=== PATIENT | male | born 1950 | race Caucasian/White ===

== ENCOUNTER → 2018-01-28 08:55 | Outpatient (CLI) | payer MEDICARE, OTHER ==
[~2018-01-28 08:55] MED LIST: BAYER CHEWABLE81 MG PO; GLUCOSAMINE HC500 MG PO; LISINOPRIL10 MG PO; PLAVIX75 MG PO; ZOCOR20 MG PO
[2018-02-01 11:13] VITALS: BMI 30.1
== END | disposition home or self-care (01) ==
LOC: D.HCCARDIO 08:55
DX: I20.9 Angina pectoris, unspecified (principal)

== ENCOUNTER 2018-02-01 10:35 | Outpatient (CLI) | payer MEDICARE, OTHER ==
[~2018-02-01] VITALS: Ht 172.7 cm; Wt 90.0 kg
--- NOTE | ~2018-02-01 | HEMODYNAMI ---
PATIENT:ALDO BURTON MEDICAL RECORD: [id number] : 50 LOCATION:[facility] ADMISSION DATE: 02/01/18 Generatedon:02/01/201814:11 Patient name: ALDO BURTON Patient #: [id number] SSN: : 1950 Date of study: 02/01/2018 Page: Of Hemodynamic Procedure Report Patient Data Patient Demographics Procedure consent was obtained First Name: ALDO Gender: Male Last Name: MICHEAL : 1950 Patient #: [id number] Age: 67 year(s) Race: Unknown Additional ID: [id number] Contact details Address: [address] [place] [address] [facility] State: [place] City: [place] Zip code: [address] Admission Admission Data Admission Date: 02/01/2018 Admission Time: 10:35 Weight (lbs.): 198.42 Weight (kg.): 90 Lab Results Lab Result Date: 02/01/2018 Lab Result Time: 0:00 Biochemistry Name Units Result Min Max BUN mg/dl 16 --(---*)-- 7 18 Creatinine mg/dl 1.2 --(---*)-- 0.6 1.3 CBC Name Units Result Min Max Hemoglobin g/dl 15.1 --(-*--)-- 13.5 17.5 Platelets 10^3/l 247 --(-*--)-- 130 400 Procedure Procedure Types Cath Procedure Diagnostic Procedure [facility] w/Coronaries PCI Procedure Coronary Stent Coronary Stent Initial Coronary Stent Additional Procedure Description Procedure Date Procedure Date: 02/01/2018 Procedure Start Time: 13:30 Procedure End Time: 14:07 Procedure Staff Name Function García Gandara MD Performing Physician Tommy Rayo RT Monitor Nicole Levine RN Nurse Vic Chaudhry RT Scrub Procedure Data Cath Procedure Fluoroscopy Diagnostic fluoroscopy Total fluoroscopy Time: time: 13.6 min 13.6 min Diagnostic fluoroscopy Total fluoroscopy dose: 911 dose: 911 mGy mGy Contrast Material Contrast Material Type Amount (ml) Isovue 300 170 Entry Location Entry Primary Successful Side Size Upsize Upsize Entry Closure Norman ccessful Closure Location (Fr) 1 (Fr) 2 (Fr) Remarks Device Remarks Radial Right 6 Fr Mechanical artery Short Compression Estimated blood loss: 10 ml Diagnostic catheters Device Type Used For End Catheter Placement DIAGNOSTIC Chucky 110cm Procedure 5Fr catheter ([id number]) Procedure Complications No complications Procedure Medications Medication Administration Route Dosage Oxygen etCO2 Nasal cannula 2 l/min Lidocaine 2% added to field 20 Heparin Flush Bag added to field 2 bags (1000units/500ml NS) 0.9% NaCl I.V. 100 ml/hr Radial Cocktail added to field 1 syringe (Verapomil 2mg/Nitro 400mcg/Heparin 1500units) Versed I.V. 1 mg Fentanyl I.V. 50 mcg Versed I.V. 1 mg Fentanyl I.V. 50 mcg Versed I.V. 1 mg Fentanyl I.V. 50 mcg Versed I.V. 1 mg Fentanyl I.V. 50 mcg Heparin Bolus I.V. 9000 units Versed I.V. 1 mg Nitroglycerin IC/IA I.C. 100 mcg Plavix P.O. 600 mg Hemodynamics Rest HGB: 15.1 (g/dl) Heart Rate: 65 (bpm) Pressure Samples Time Site Value (mmHg) Purpose Heart Use Rate(bpm) 13:32 LV 106/35,7 Snapshot 127 13:32 AO 145/86(115) Pullback 103 13:32 LV 143/15,27 Pullback 103 13:32 AO 122/70(79) Snapshot 90 13:35 AO 114/75(92) Snapshot 92 Gradients Valve Time Site 1 Site 2 Mean SEP/DFP Peak To Heart Use (mmHg) (sec/min) Peak Rate (mmHg) (bpm) Aortic 13:32 LV AO 0 103 143/15,27 145/86(115) Calculations Valve P-P Mean Valve Index Valve Source Name Gradient Area Flow (cm2) Aortic 0 0 Snapshots Pre Cath Intra NCS Post Cath Vital Signs Time Heart Resp SPO2 etCO2 NIBP (mmHg) Rhythm Pain Sedation Rate (ipm) (%) (mmHg) Status Level (bpm) 13:17:10 69 17 92 15 146/98(129) NSR 0 (11) 10(A) , No pain 13:21:30 67 14 93 17.3 142/87(127) NSR 0 (11) 10(A) , No pain 13:25:48 72 15 95 9.8 139/92(114) NSR 0 (11) 10(A) , No pain 13:31:01 83 13 94 18 126/86(106) NSR 0 (11) 9(A) , No pain 13:36:13 94 11 95 12 119/88(103) NSR 0 (11) 9(A) , No pain 13:40:25 89 14 92 24.1 114/87(107) NSR 0 (11) 9(A) , No pain 13:45:26 90 14 94 27.8 139/86(101) NSR 0 (11) 9(A) , No pain 13:49:42 80 16 94 28.6 107/93(103) NSR 0 (11) 9(A) , No pain 13:53:52 78 13 93 17.3 126/78(104) NSR 0 (11) 9(A) , No pain 13:58:14 77 14 92 18 111/70(91) NSR 0 (11) 9(A) , No pain 14:02:22 81 15 93 17.3 111/79(107) NSR 0 (11) 9(A) , No pain 14:06:32 89 14 94 32.4 126/85(122) NSR 0 (11) 10(A) , No pain Medications Time Medication Route Dose Verified Delivered Reason Not es Effectiveness by by 13:19:32 Oxygen etCO2 2 l/min García Buffie used for Nasal Eric Levine RN procedure cannula 13:19:39 Lidocaine 2% added 20ml García García for local to vial Eric Gandara MD anesthetic field 13:19:46 Heparin Flush added 2 bags García García used for Bag to Eric Gandara MD procedure (1000units/500ml field NS) 13:19:57 0.9% NaCl I.V. 100 García Buffie Per physician ml/hr Eric Levine RN 13:20:16 Radial Cocktail added 1 García García for (Verapomil to syringe Eric Gandara MD vasodilation 2mg/Nitro field 400mcg/Heparin 1500units) 13:21:04 Fentanyl I.V. 50 mcg García Buffie for sedation Eric Levine RN 13:21:59 Versed I.V. 1 mg García Buffie for sedation Eric Levine RN 13:25:26 Versed I.V. 1 mg García Buffie for sedation Eric Levine RN 13:25:32 Fentanyl I.V. 50 mcg García Buffie for sedation Eric Levine RN 13:38:02 Versed I.V. 1 mg García Buffie for sedation Eric Levine RN 13:38:07 Fentanyl I.V. 50 mcg García Buffie for sedation Eric Levine RN 13:45:28 Versed I.V. 1 mg García Buffie for sedation Eric Levine RN 13:45:32 Fentanyl I.V. 50 mcg García Buffie for sedation Eric Levine RN 13:46:56 Heparin Bolus I.V. 9000 García Buffie for mauro ified units Eric Levine RN anticoagulation with dr gandara 13:52:37 Versed I.V. 1 mg García Buffie for sedation Eric Levine RN 14:00:56 Nitroglycerin I.C. 100 mcg García García for IC/IA Eric camacho 14:07:36 Plavix P.O. 600 mg García Buffie for Eric Levine RN antiplatelet therapy Procedure Log Time Note 12:40:18 Nicole Levine RN sent for patient. Start room use. 12:58:19 Time tracking: Regular hours (M-F 7:00 - 5:00) 12:58:24 Plan of Care:Hemodynamics will remain stable., Cardiac rhythm will remain stable., Comfort level will be maintained., Respiratory function will remain adequate., Patient/ family verbilizes understanding of procedure., Procedure tolerated without complication., Recovers from procedure without complications.. 13:01:33 Patient received from Pre/Post Procedure Room to CCL 3 Alert and oriented. Tansferred to table in Supine position. 13:01:35 Warm blankets applied, and tanja hugger turned on for patient comfort. 13:01:35 Correct patient and procedure confirmed by team. 13:01:36 Signed procedure consent form obtained from patient. 13:01:37 ECG and BP/O2 sat monitors applied to patient. 13:15:55 Vital chart was started 13:15:57 Baseline sample Acquired. 13:16:01 Rhythm: sinus rhythm 13:16:02 Full Disclosure recording started 13:16:16 H&P Date Dictated: 01/11/2018 Within 30 days and on chart., H&P Addendum completed by physician on day of procedure. (MUST COMPLETE FOR ALL OUTPATIENTS). 13:16:16 Pre-procedure instructions explained to patient. 13:16:17 Pre-op teaching completed and patient verbalized understanding. 13:16:20 Family in patients room. 13:18:19 Patient NPO since Midnight. 13:18:23 Is the patient allergic to Iodine/contrast media? No. 13:18:28 Is patient on blood thinner?No 13:18:31 Patient diabetic? No. 13:18:36 Previous problem with sedation/anesthesia? No ? 13:18:48 Snore? Yes 13:18:49 Sleep apnea? No 13:18:50 Deviated septum? No 13:18:51 Opens mouth fully? Yes 13:18:51 Sticks out tongue? Yes 13:18:53 Airway obstruction? No ? 13:18:55 Dentures? No ? 13:18:58 Pre procedure: right dorsailis pedis pulse 1+ Palpable, but thready & weak; easily obliterated 13:19:00 Modified Rikki's test Ulnar < 7 seconds 13:19:03 Patient pain scale 0/10 ?. 13:19:08 IV patent on arrival in left hand with 0.9% NaCl at O. 13:19:09 Lab results completed and on chart. 13:19:12 Right Radial & Right Groin area was prepped with chlora-prep and draped in sterile fashion 13:19:13 Alarms reviewed by R. N. 13:19:14 Sharps counted by scrub and verified by R.N. 13:19:17 Use device set Radial Dx or PCI 13:19:21 ACIST Manifold (40295) opened to sterile field. 13:19:22 ACIST Hand Control (12145) opened to sterile field. 13:19:23 ACIST Syringe (56294) opened to sterile field. 13:19:23 Medline Cath Pack ([id number]) opened to sterile field. 13:19:24 Bag Decanter (2002S) opened to sterile field. 13:19:24 DIAGNOSTIC WIRE .035 260cm J wire (919596) opened to sterile field. 13:19:27 SHEATH 6Fr Prelude Radial ([id number]) opened to sterile field. 13:19:32 Oxygen 2 l/min etCO2 Nasal cannula was administered by Nicole Levine RN; used for procedure; 13:19:39 Lidocaine 2% 20ml vial added to field was administered by García Gandara MD; for local anesthetic; 13:19:46 Heparin Flush Bag (1000units/500ml NS) 2 bags added to field was administered by García Gandara MD; used for procedure; 13:19:57 0.9% NaCl 100 ml/hr I.V. was administered by Nicole Levine RN; Per physician; 13:20:16 Radial Cocktail (Verapomil 2mg/Nitro 400mcg/Heparin 1500units) 1 syringe added to field was administered by García Gandara MD; for vasodilation; 13:20:33 --------ALL STOP TIME OUT------ 13:20:34 Final Timeout: patient, procedure, and site verified with staff and physician. All members of the team are in agreement. 13:20:36 Right Radial & Right Groin site verified by team. 13:20:39 Physical assessment completed. ASA score P 2 - A patient with mild systemic disease as per García Gandara MD. 13:20:41 Sedation plan: IV Moderate Sedation Medication:Versed, Fentanyl 13:21:04 Fentanyl 50 mcg I.V. was administered by Nicole Levine RN; for sedation; 13::59 Versed 1 mg I.V. was administered by Nicole Levine RN; for sedation; 13::27 Zero performed for pressure channel P1 13:25:26 Versed 1 mg I.V. was administered by Nicole Levine RN; for sedation; 13:25:32 Fentanyl 50 mcg I.V. was administered by Nicole Levine RN; for sedation; 13::49 Patient Weight : 198.42 lbs 13::46 Lab Result : Hemoglobin 15.1 g/dl 13::46 Lab Result : Creatinine 1.2 mg/dl 13::46 Lab Result : BUN 16 mg/dl 13::46 Lab Result : Platelets 247 10^3/l 13:30:35 Procedure started. 13:30:41 Local anesthetic to right radial artery with Lidocaine 2% by García Gandara MD.INITIAL ACCESS ONLY 13:31:00 A 6 Fr Short sheath was inserted into the Right Radial artery 13:31:17 A DIAGNOSTIC Chucky 110cm 5Fr catheter ([id number]) was advanced over the wire and used for Procedure. 13:32:18 LV angiography performed. 13:32:19 LV gram done using GIBSON 13:32:23 EF : 60 % 13:32:34 LV hemodynamics recorded. 13:32:36 Injector settings: Ml/sec: 5, Volume: 15, 13:33:20 RCA angiography performed. 13:34:12 LCA angiography performed. 13:37:41 Catheter exchanged over wire. 13:37:44 Use device set ERIC PCI 13:37:46 GUIDE 6FR AR 1.0 catheter ([id number]) opened to sterile field. 13:37:51 BMW 300cm [place] 2 J wire ([id number]) opened to sterile field. 13:37:52 INFLATOR Merit BasixCompak (MR5453) opened to sterile field. 13:37:53 TUBING High Pressure Extension Tubing (Eric) (CX4060F) opened to sterile field. 13:38:02 Versed 1 mg I.V. was administered by Nicole Levine RN; for sedation; 13:38:07 Fentanyl 50 mcg I.V. was administered by Nicole Levine RN; for sedation; 13:39:56 6 Fr AR 1 guide catheter was inserted over the wire 13:42:15 Guide Catheter removed. unable to cannulate vessel. 13:43:30 GUIDE 6FR HS I catheter (LA6HSI) opened to sterile field. 13:44:45 6 Fr HS 1 guide catheter was inserted over the wire 13:45:28 Versed 1 mg I.V. was administered by Nicole Levine RN; for sedation; 13:45:32 Fentanyl 50 mcg I.V. was administered by Nicole Levine RN; for sedation; 13:46:15 BMW wire advanced. 13:46:56 Heparin Bolus 9000 units I.V. was administered by Nicole Levine RN; for anticoagulation; verified with dr gandara 13:50:49 Wire advanced across lesion. 13:52:37 Versed 1 mg I.V. was administered by Nicole Levine RN; for sedation; 13:53:41 Place stent Inflation Number: 1 A INTEGRITY OTW 2.5 X 12 stent ([id number]) was prepped and advanced across the R PDA. The stent was deployed at 14 SONALI for 0:10 (min:sec). 13:58:01 Stent catheter was removed intact over wire. 14:00:19 Place stent Inflation Number: 1 A INTEGRITY OTW 3.0 X 22 stent ([id number]) was prepped and advanced across the Dist RCA. The stent was deployed at 10 SONALI for 0:10 (min:sec). 14:00:49 Stent catheter was removed intact over wire. 14:00:56 Nitroglycerin IC/IA 100 mcg I.C. was administered by García Gandara MD; for vasodilation; 14:04:32 Stent catheter was removed intact over wire. 14:04:33 Wire removed. 14:04:34 Guide catheter removed. 14:04:42 TR BAND Standard ([id number]) opened to sterile field. 14:04:57 Sheath removed intact; hemostasis achieved with Mechanical Compression to the Right Radial artery. 14:04:59 Procedure ended.(Physican Out) 14:05:49 Fluoroscopy time 13.60 minutes. 14:05:53 Fluoroscopy dose: 911 mGy 14:05:53 Flurop Dose total: 911 14:05:57 Contrast amount:Isovue 300 170ml. 14:05:59 Sharps counted by scrub and verified by R.N. 14:06:00 Insertion/operative site no bleeding no hematoma. 14:06:08 TR band inflated with 10cc of air. 14:06:11 Post Procedure Pulses reassessed and unchanged 14:06:17 Post-procedure physical assessment completed. ASA score P 2 - A patient with mild systemic disease as per García Gandara MD. 14:06:19 Post procedure rhythm: unchanged. 14:06:22 Estimated blood loss: 10 ml 14:06:25 Post procedure instruction explained to patient.Patient verbalizes understanding. 14:06:25 Patient needs reinforcement of post procedure teaching. 14:06:39 Procedure type changed to Cath procedure, Diagnostic procedure, LHC, LHC w/Coronaries, PCI procedure, Coronary Stent, Coronary Stent Initial, Coronary Stent Additional 14:06:41 Procedure and supply charges have been captured, reviewed, submitted and are correct. 14:06:43 Procedure Complication : No complications 14:07:08 Vital chart was stopped 14:07:08 See physician's report for complete and final results. 14:07:10 Report given to Pre/Post Procedure Room. 14:07:12 Patient transfered to Pre/Post Procedure Room with Stretcher. 14:07:14 Procedure ended. 14:07:14 Full Disclosure recording stopped 14:07:36 Plavix 600 mg P.O. was administered by Nicole Levine RN; for antiplatelet therapy; 14:08:12 End room use (Document Last) Intervention Summary Intervention Notes Time ActionType Lesion and Equipment Action# Pressure Duration Attributes Used 13:53:41 Place stent R PDA INTEGRITY 1 14 00:10 OTW 2.5 X 12 stent ([id number]) 14:00:19 Place stent Dist RCA INTEGRITY 1 10 00:10 OTW 3.0 X 22 stent ([id number]) Device Usage Item Name Manufacture Quantity Catalog Number Hospital Part Current M inimal Lot# / Charge Number Stock Stock Serial# Code ACIST Manifold Acist 1 23351 237731 217738 177601 5 (21102) [employer] ACIST Hand Acist 1 58468 166054 586136 439864 5 Control (91023) [employer] ACIST Syringe Acist 1 70329 575744 674889 995418 2 0 (07039) [employer] Medline Cath Medline 1 [id number] 111564 92977 480002 5 Pack ([id number]) Bag Decanter Microtek 1 2002S 879097 60388 640776 5 (2001S) Medical Inc. DIAGNOSTIC WIRE St Shamir 1 110478 212188 970228 666118 3 0 .035 260cm J wire (847627) SHEATH 6Fr Merit 1 [id number] 002114 821799 933640 5 Prelude Radial Medical ([id number]) DIAGNOSTIC Terumo 1 82-0633 584155 496933 829417 5 Chucky 110cm 5Fr catheter (858251) GUIDE 6FR AR Medtronic 1 [id number] 850423 33023 249421 1 1.0 catheter ([id number]) BMW 300cm Norton 1 [id number] 820533 171261 014300 5 [place] 2 J Vascular wire (1717560M) INFLATOR Merit Merit 1 NT9722 234938 896723 867438 1 5 BasixCompak Medical (MB5626) TUBING High Merit 1 [id number] 550759 05805 266582 1 0 Pressure Medical Extension Tubing (Gandara) ([id number]) GUIDE 6FR HS I Medtronic 1 LA6HSI 065459 59122 212470 1 catheter (LA6HSI) INTEGRITY OTW Medtronic 1 [id number] 299382 777546 3 [id number] 2.5 X 12 stent ([id number]) INTEGRITY OTW Medtronic 1 [id number] 774989 396905 3 [id number] 3.0 X 22 stent ([id number]) TR BAND Terumo 1 [id number] 638316 581413 985694 4 0 Standard ([id number]) Signature Audit [place] Stage Time Signature Unsigned Intra-Procedure 02/01/2018 Tommy Rayo 2:10:59 PM RT(R) Signatures Monitor : Tommy Rayo RT Signature : Date : Time : [place] [address] [place] [address]
[2018-02-01] MEDS ORDERED: LISINOPRIL10 MG PO (11:06)
[2018-02-01] MEDS ORDERED: ZOCOR20 MG PO (11:06)
[2018-02-01] MEDS ORDERED: BAYER CHEWABLE81 MG PO (11:07)
[2018-02-01] MEDS ORDERED: GLUCOSAMINE HC500 MG PO (11:07)
[2018-02-01 11:13] VITALS: BP 158/80; Ht 172.7 cm; Wt 90.0 kg
[2018-02-01 11:26] LABS: BASOPHILS 0.2 % (0-2); EOSINOPHILS 2.6 % (0-7); HEMATOCRIT 44.6 % (42.0-54.0); HEMOGLOBIN 15.1 g/dL (13.5-17.5); IMMATURE GRANULOCYTES 0.1 % (0-5); LYMPHOCYTES 39.8 % (15-50); MCH 31.3 pg (26.0-34.0); MCHC 33.9 g/dL (31.0-37.0); MCV 92.5 fL (80.0-100.0); MEAN PLATELET VOLUME 11.9 fL (7.4-10.4); MONOCYTES 12.3 % (2-11); PLATELET COUNT 247 10x3/uL (130-400); RBC 4.82 10x6/uL (4.20-6.10)
[2018-02-01 11:37] LABS: ANION GAP 13.7 mmol/L (8-16); CALCIUM 8.8 mg/dL (8.5-10.1); CARBON DIOXIDE 25.4 mmol/L (21.0-32.0); CREATININE - SERUM 1.2 mg/dL (0.6-1.3); POTASSIUM - SERUM 4.1 mmol/L (3.5-5.1)
[2018-02-01] MEDS ORDERED: PLAVIX75 MG PO (14:20)
== END 2018-02-01 18:30 | disposition home or self-care (01) ==
LOC: D.CATH 10:35
PROVIDERS: Internal Medicine Cardiovascular Disease
DX: I20.9 Angina pectoris, unspecified (principal)

== ENCOUNTER → 2018-05-11 08:52 | Outpatient (CLI) | payer MEDICARE, OTHER ==
[2018-02-01 11:13] VITALS: BMI 30.1
== END | disposition home or self-care (01) ==
LOC: D.US 08:30
PROVIDERS: ATTEND Family Medicine
DX: R94.5 Abnormal results of liver function studies (principal)

== ENCOUNTER 2018-06-10 05:53 | Outpatient (CLI) | payer MEDICARE, OTHER ==
[~2018-06-10] VITALS: Ht 172.7 cm; Wt 91.4 kg
--- NOTE | ~2018-06-10 | HEMODYNAMI ---
PATIENT:ALDO BURTON MEDICAL RECORD: [id number] : 50 LOCATION:D.CAT ADMISSION DATE: 06/10/18 Generatedon:06/10/20188:54 Patient name: ALDO BURTON Patient #: [id number] SSN: : 1950 Date of study: 06/10/2018 Page: Of Hemodynamic Procedure Report Patient Data Patient Demographics Procedure consent was obtained First Name: ALDO Gender: Male Last Name: MICHEAL : 1950 [facility] Initial: SANTINO Age: 67 year(s) Patient #: [id number] Race: Unknown Additional ID: [id number] Contact details Address: [address] [place] [address] [facility] State: [place] City: [place] Zip code: [address] Past Medical History Allergies: No known allergies Admission Admission Data Admission Date: 06/10/2018 Admission Time: 5:53 Lab Results Lab Result Date: 06/10/2018 Lab Result Time: 0:00 Biochemistry Name Units Result Min Max BUN mg/dl 23 --(----)-* 7 18 Creatinine mg/dl 1.2 --(---*)-- 0.6 1.3 CBC Name Units Result Min Max Hematocrit % 43.9 --(*---)-- 42 54 Hemoglobin g/dl 14.8 --(-*--)-- 13.5 17.5 Procedure Procedure Types Cath Procedure Diagnostic Procedure C [facility] w/Coronaries FFR/IVUS Intra-Coronary IVUS Initial Sedation Charges Moderate Sedation up to 30 minutes PCI Procedure Coronary Stent Coronary Stent Initial Procedure Description Procedure Date Procedure Date: 06/10/2018 Procedure Start Time: 8:25 Procedure End Time: 8:52 Procedure Staff Name Function García Reyes MD Performing Physician Phyllis Geller RT Scrub Vanessa Larson RT Monitor Nicole Levine RN Nurse Procedure Data Cath Procedure Fluoroscopy Diagnostic fluoroscopy Total fluoroscopy Time: 5.3 time: 5.3 min min Diagnostic fluoroscopy Total fluoroscopy dose: dose: 1085 mGy 1085 mGy Contrast Material Contrast Material Type Amount (ml) Isovue 300 94 Entry Location Entry Primary Successful Side Size Upsize Upsize Entry Closure Norman ccessful Closure Location (Fr) 1 (Fr) 2 (Fr) Remarks Device Remarks Radial Right 6 Fr Mechanical artery Short Compression Estimated blood loss: 10 ml Diagnostic catheters Device Type Used For End Catheter Placement DIAGNOSTIC Chucky 110cm Procedure 5Fr catheter ([id number]) Procedure Complications No complications Procedure Medications Medication Administration Route Dosage Versed I.V. 1 mg Fentanyl I.V. 50 mcg Radial Cocktail added to field 1 syringe (Verapomil 2mg/Nitro 400mcg/Heparin 1500units) Versed I.V. 1 mg Fentanyl I.V. 50 mcg Oxygen etCO2 Nasal cannula 2 l/min Lidocaine 2% added to field 20 Heparin Flush Bag added to field 2 bags (1000units/500ml NS) 0.9% NaCl I.V. 100 ml/hr Versed I.V. 1 mg Fentanyl I.V. 50 mcg Heparin Bolus I.V. 9000 units Versed I.V. 1 mg Fentanyl I.V. 50 mcg Plavix P.O. 600 mg Hemodynamics Rest HGB: 14.8 (g/dl) Heart Rate: 73 (bpm) Pressure Samples Time Site Value (mmHg) Purpose Heart Use Rate(bpm) 8:27 LV 176/9,35 Snapshot 71 Gradients Valve Time Site Site Mean SEP/DFP Peak To Heart Use 1 2 (mmHg) (sec/min) Peak Rate (mmHg) (bpm) Aortic 8:27 LV AO 92 Snapshots Pre Cath Intra NCS Post Cath Vital Signs Time Heart Resp SPO2 etCO2 NIBP (mmHg) Rhythm Pain Sedation Rate (ipm) (%) (mmHg) Status Level (bpm) 8:07:56 70 33 96 32.5 163/93(151) NSR 0 (11) 10(A) , No pain 8:12:16 54 13 96 0 151/92(109) NSR 0 (11) 10(A) , No pain 8:16:34 61 13 94 35.5 138/81(114) NSR 0 (11) 10(A) , No pain 8:20:46 60 18 94 16.6 131/83(120) NSR 0 (11) 9(A) , No pain 8:24:52 68 17 96 22.6 139/97(112) NSR 0 (11) 9(A) , No pain 8:30:52 84 16 94 36.2 139/85(0) NSR 0 (11) 9(A) , No pain 8:34:37 80 15 97 30.2 147/80(103) NSR 0 (11) 9(A) , No pain 8:38:47 86 16 94 31.7 137/87(112) NSR 0 (11) 9(A) , No pain 8:42:57 77 14 95 30.2 126/88(121) NSR 0 (11) 9(A) , No pain 8:47:03 71 14 93 8.3 131/92(124) NSR 0 (11) 10(A) , No pain 8:51:13 90 16 95 36.2 135/87(117) NSR 0 (11) 10(A) , No pain Medications Time Medication Route Dose Verified Delivered Reason Note s Effectiveness by by 8:09:55 0.9% NaCl I.V. 100 García Buffie Per physician ml/hr Eric Levine RN 8:10:34 Oxygen etCO2 2 l/min García Buffie used for Nasal Eric Levine RN procedure cannula 8:11:44 Lidocaine 2% added 20ml García García for local to vial Eric Reyes MD anesthetic field 8:11:50 Heparin Flush added 2 bags García García used for Bag to Eric Reyes MD procedure (1000units/500ml field NS) 8:17:05 Versed I.V. 1 mg García Buffie for sedation pt s tates Eric Levine RN had reaction of chills to eye procedure using versed, however states they left "visc elastic"in eye. last procedure had no problems with versed. 8:18:30 Fentanyl I.V. 50 mcg García Buffie for sedation Eric Levine RN 8:19:37 Radial Cocktail added 1 García García for (Verapomil to syringe Eric Reyes MD vasodilation 2mg/Nitro field 400mcg/Heparin 1500units) 8:23:24 Versed I.V. 1 mg García García for sedation Eric Reyes MD 8:23:28 Fentanyl I.V. 50 mcg García García for sedation Eric Reyes MD 8:26:41 Versed I.V. 1 mg García Buffie for sedation Eric Levine RN 8:26:47 Fentanyl I.V. 50 mcg García Buffie for sedation Eric Levine RN 8:36:46 Heparin Bolus I.V. 9000 García Buffie for veri fied units Eric Levine RN anticoagulation with dr reyes 8:42:51 Versed I.V. 1 mg García Buffie for sedation Eric Levine RN 8:42:55 Fentanyl I.V. 50 mcg García Buffie for sedation Eric Levine RN 8:50:33 Plavix P.O. 600 mg García Buffie for Eric Levine RN antiplatelet therapy Procedure Log Time Note 7:55:41 Phyllis Counts RT(R) sent for patient. Start room use. 7:55:42 Time tracking: Regular hours (M-F 7:00 - 5:00) 7:55:45 Plan of Care:Hemodynamics will remain stable., Cardiac rhythm will remain stable., Comfort level will be maintained., Respiratory function will remain adequate., Patient/ family verbilizes understanding of procedure., Procedure tolerated without complication., Recovers from procedure without complications.. 7:57:17 Signed procedure consent form obtained from patient. 7:57:30 H&P Date Dictated: 06/02/2018 Within 30 days and on chart., H&P Addendum completed by physician on day of procedure. (MUST COMPLETE FOR ALL OUTPATIENTS). 8:00:16 Lab Result : BUN 23 mg/dl 8:00:16 Lab Result : Creatinine 1.2 mg/dl 8:00:16 Lab Result : Hemoglobin 14.8 g/dl 8:00:16 Lab Result : Hematocrit 43.9 % 8:00:31 Patient received from Pre/Post Procedure Room to [facility] 2 Alert and oriented. Tansferred to table in Supine position. 8:00:33 Warm blankets applied, and tanja hugger turned on for patient comfort. 8:00:33 Correct patient and procedure confirmed by team. 8:00:34 ECG and BP/O2 sat monitors applied to patient. 8:06:45 Vital chart was started 8:09:46 Baseline sample Acquired. 8:09:49 Rhythm: sinus rhythm 8:09:50 Full Disclosure recording started 8:09:51 Pre-procedure instructions explained to patient. 8:09:51 Pre-op teaching completed and patient verbalized understanding. 8:09:53 Family in patients room. 8:09:54 Patient NPO since Midnight. 8:09:55 0.9% NaCl 100 ml/hr I.V. was administered by Nicole Levine RN; Per physician; 8:10:04 Patient allergic to No known allergies 8:10:07 Is patient on blood thinner?No 8:10:09 Patient diabetic? No. 8:10:11 Previous problem with sedation/anesthesia? No ? 8:10:13 Snore? No 8:10:14 Sleep apnea? No 8:10:15 Deviated septum? No 8:10:16 Opens mouth fully? Yes 8:10:16 Sticks out tongue? Yes 8:10:18 Airway obstruction? No ? 8:10:21 Dentures? No ? 8:10:24 Modified Rikki's test Ulnar < 7 seconds 8:10:26 Patient pain scale 0/10 ?. 8:10:31 IV patent on arrival in left hand with 0.9% NaCl at [facility]. 8:10:33 Lab results completed and on chart. 8:10:34 Oxygen 2 l/min etCO2 Nasal cannula was administered by Nicole Levine RN; used for procedure; 8:11:23 Right Radial & Right Groin area was prepped with chlora-prep and draped in sterile fashion 8:11:24 Alarms reviewed by R. N. 8:11:25 Sharps counted by scrub and verified by R.N. 8:11:42 Use device set Radial Dx or PCI 8:11:44 Lidocaine 2% 20ml vial added to field was administered by García Reyes MD; for local anesthetic; 8:11:44 ACIST Syringe (16559) opened to sterile field. 8:11:44 Bag Decanter () opened to sterile field. 8:11:45 ACIST Hand Control (99695) opened to sterile field. 8:11:46 ACIST Manifold (57465) opened to sterile field. 8:11:46 Tegaderm 4 x 4 (1626W) opened to sterile field. 8:11:50 Heparin Flush Bag (1000units/500ml NS) 2 bags added to field was administered by García Reyes MD; used for procedure; 8:11:50 Medline Cath Pack ([id number]) opened to sterile field. 8:11:51 DIAGNOSTIC WIRE .035 260cm J wire (583569) opened to sterile field. 8:11:51 MBrace Wrist Support ([id number]) opened to sterile field. 8:11:52 SHEATH 6FR Slender (26-7942) opened to sterile field. 8:14:38 NEEDLE Cook 21G 4cm Radial ([id number]) opened to sterile field. 8:14:41 --------ALL STOP TIME OUT------ 8:14:41 Final Timeout: patient, procedure, and site verified with staff and physician. All members of the team are in agreement. 8:14:43 Right Radial & Right Groin site verified by team. 8:14:45 Maximum allowable Isovue 300 dose 300ml. Physician notified. (300ml for normal creatinines. For patients with creatinine of 1.7 or higher multiply weight(kg) x 5 divided by creatinine.) 8:14:48 Fire Safety Assessment: A--An alcohol-based skin anteseptic being used preoperatively., C--Open oxygen or nitrous oxide is being used., D--An ESU, laser, or fiber-optic light is being used. 8:14:51 Physical assessment completed. ASA score P 2 - A patient with mild systemic disease as per García Reyes MD. 8:14:54 Sedation plan: IV Moderate Sedation Medication:Versed, Fentanyl 8:17:05 Versed 1 mg I.V. was administered by Nicole Levine RN; for sedation; pt states had reaction of chills to eye procedure using versed, however states they left "visc elastic"in eye. last procedure had no problems with versed. 8:18:30 Fentanyl 50 mcg I.V. was administered by Nicole Levine RN; for sedation; 8:19:37 Radial Cocktail (Verapomil 2mg/Nitro 400mcg/Heparin 1500units) 1 syringe added to field was administered by García Reyes MD; for vasodilation; 8:21:27 Zero performed for pressure channel P1 8:23:24 Versed 1 mg I.V. was administered by García Reyes MD; for sedation; 8:23:28 Fentanyl 50 mcg I.V. was administered by García Reyes MD; for sedation; 8:24:04 Procedure started. 8:25:02 Local anesthetic to right radial artery with Lidocaine 2% by García Reyes MD.INITIAL ACCESS ONLY 8:25:16 A 6 Fr Short sheath was inserted into the Right Radial artery 8:25:23 A DIAGNOSTIC Chucky 110cm 5Fr catheter ([id number]) was advanced over the wire and used for Procedure. 8:26:37 LV gram done using GIBSON 8:26:41 Versed 1 mg I.V. was administered by Nicole Levine RN; for sedation; 8::42 Injector settings: Ml/sec: 7, Volume: 15, 8:26:47 Fentanyl 50 mcg I.V. was administered by Nicole Levine RN; for sedation; 8:27:11 LV hemodynamics recorded. 8:27:23 EF : 55 % 8:29:52 LCA angiography performed. 8:29:53 RCA angiography performed. 8:33:31 Catheter exchanged over wire. 8:34:00 INFLATOR Merit BasixCompak (FW6555) opened to sterile field. 8:34:01 BMW 300cm Straight [place] 2 wire ([id number]) opened to sterile field. 8:34:01 TUBING High Pressure Extension Tubing (Eric) ([id number]) opened to sterile field. 8:34:25 GUIDE 6FR AR 1.0 catheter ([id number]) opened to sterile field. 8:34:57 6 Fr AR 1 guide catheter was inserted over the wire 8:36:46 Heparin Bolus 9000 units I.V. was administered by Nicole Levine RN; for anticoagulation; verified with dr reyes 8:36:54 Martin Rexford Eagleye IVUS Catheter (23397W) opened to sterile field. 8:37:42 BMW 300 wire advanced. 8:37:54 Wire advanced across lesion. 8:42:51 Versed 1 mg I.V. was administered by Nicole Levine RN; for sedation; 8:42:55 Fentanyl 50 mcg I.V. was administered by Nicole Levine RN; for sedation; 8:44:59 IVUS catheter advanced over wire. 8:45:01 IVUS pass to RCA lesion performed. 8:45:02 IVUS catheter removed over wire. 8:48:45 Place stent Inflation Number: 1 A INTEGRITY RX 4.0 x 15 stent ([id number]) was prepped and advanced across the Prox RCA. The stent was deployed at 14 SONALI for 0:10 (min:sec). 8:49:02 Stent catheter was removed intact over wire. 8:49:40 Wire removed. 8:49:40 Guide catheter removed. 8:49:57 TR BAND Standard ([id number]) opened to sterile field. 8:50:31 Procedure ended.(Physican Out) 8:50:33 Plavix 600 mg P.O. was administered by Nicole Levine RN; for antiplatelet therapy; 8:50:56 Sheath removed intact; hemostasis achieved with Mechanical Compression to the Right Radial artery. 8:51:01 Fluoroscopy time 05.30 minutes. 8:51:09 Flurop Dose total: 1085 8:51:09 Fluoroscopy dose: 1085 mGy 8:51:14 Contrast amount:Isovue 300 94ml. 8:51:15 Sharps counted by scrub and verified by R.N. 8:51:17 TR band inflated with 13cc of air. 8:51:21 Post-procedure physical assessment completed. ASA score P 2 - A patient with mild systemic disease as per García Reyes MD. 8:51:28 Post procedure rhythm: sinus rhythm 8:51:30 Estimated blood loss: 10 ml 8:51:31 Post procedure instruction explained to patient.Patient verbalizes understanding. 8:51:32 Patient needs reinforcement of post procedure teaching. 8:51:47 Procedure type changed to Cath procedure, Diagnostic procedure, LHC, LHC w/Coronaries, FFR/IVUS, Intra-Coronary IVUS Initial, Sedation Charges, Moderate Sedation up to 30 minutes, PCI procedure, Coronary Stent, Coronary Stent Initial 8:52:16 Procedure and supply charges have been captured, reviewed, submitted and are correct. 8:52:18 Procedure Complication : No complications 8:52:20 Vital chart was stopped 8:52:20 See physician's report for complete and final results. 8:52:22 Report given to Pre/Post Procedure Room. 8:52:27 Patient transfered to Pre/Post Procedure Room with Bed. 8:52:29 Procedure ended. 8:52:29 Full Disclosure recording stopped 8:52:34 End room use (Document Last) Intervention Summary Intervention Notes Time ActionType Lesion and Equipment Action# Pressure Duration Attributes Used 8:48:45 Place stent Prox RCA INTEGRITY RX 1 14 00:10 4.0 x 15 stent ([id number]) Device Usage Item Name Manufacture Quantity Catalog Hospital Part Current Minima l Lot# / Number Charge Number Stock Stock Serial# Code ACIST Acist 1 33581 870020 366837 888668 20 Syringe Medical (33814) Systems Inc Bag Decanter Microtek 1 2001S 083271 33393 356819 5 (2001S) Medical Inc. ACIST Hand Acist 1 82530 784314 565105 382810 5 Control Medical (09595) Systems Inc ACIST Acist 1 99988 166274 801662 616375 5 Manifold Medical (81898) Systems Inc Tegaderm 4 x 3M 1 1626W 432754 406508 001979 5 4 (1626W) Medline Cath Medline 1 [id number] 921973 12161 341892 5 Pack ([id number]) DIAGNOSTIC St Shamir 1 273516 674460 436584 828930 30 WIRE .035 260cm J wire (837332) MBrace Wrist Advanced 1 140-0250-00 068985 43178 625832 5 Support Vascular (172382317) Dynamics SHEATH 6FR Terumo 1 [id number] 602442 589501 277929 5 Slender (80-1060) NEEDLE Cook [place] [employer] 1 G83512 008716 139246 308789 5 21G 4cm Radial (N79092) DIAGNOSTIC Terumo 1 405023 412437 109894 328640 5 Chucky 110cm 5Fr catheter (144314) INFLATOR Merit 1 NN6876 370647 497665 608441 15 Merit Medical BasixCompak (NG8519) BMW 300cm Norton 1 [id number] 853069 958707 144075 5 Straight Vascular Kol[place] 2 wire (7508312) TUBING High Merit 1 UV3650Q 547968 24564 588374 10 Pressure Medical Extension Tubing (Reyes) ([id number]) GUIDE 6FR AR Medtronic 1 [id number] 424431 55905 553697 1 1.0 catheter ([id number]) Martin Martin 1 54907J 807486 170518 839212 8 Rexford Eagleye IVUS Catheter (14089Z) INTEGRITY RX Medtronic 1 [id number] 864687 959324 206244 5 [id number] 4.0 x 15 stent ([id number]) TR BAND Terumo 1 [id number] 635235 325995 013322 40 Standard ([id number]) Signature Audit [place] Stage Time Signature Unsigned Intra-Procedure 06/10/2018 Vanessa Larson 8:54:38 AM RT(R) Signatures Monitor : Vanessa Larson Signature : RT Date : Time : [place] [address] [place] [address]
[2018-06-10 06:32] VITALS: BP 141/85; Ht 172.7 cm; Wt 91.4 kg
[2018-06-10 06:37] LABS: BASOPHILS 0.3 % (0-2); HEMATOCRIT 43.9 % (42.0-54.0); HEMOGLOBIN 14.8 g/dL (13.5-17.5); IMMATURE GRANULOCYTES 0.3 % (0-5); LYMPHOCYTES 41.7 % (15-50); MCHC 33.7 g/dL (31.0-37.0); MCV 91.8 fL (80.0-100.0); MEAN PLATELET VOLUME 12.2 fL (7.4-10.4); NEUTROPHILS 42.7 % (40-80); PLATELET COUNT 220 10x3/uL (130-400); RBC 4.78 10x6/uL (4.20-6.10); RDW 12.1 % (11.5-14.5); WBC 10.2 10x3/uL (4.8-10.8)
[2018-06-10 06:53] LABS: ANION GAP 14.5 mmol/L (8-16); CALCIUM 8.7 mg/dL (8.5-10.1); CARBON DIOXIDE 24.3 mmol/L (21.0-32.0); CREATININE - SERUM 1.2 mg/dL (0.6-1.3); POTASSIUM - SERUM 3.8 mmol/L (3.5-5.1)
[2018-06-10] MEDS ORDERED: ISOSORBIDE DINI20 MG PO (07:09)
[2018-06-10] MEDS ORDERED: CENTRUM MEN'S1 EACH PO (07:10)
[2018-06-10] MEDS ORDERED: FISH OIL 1,0001 CA1 PO (07:10)
[2018-06-10] MEDS ORDERED: PLAVIX75 MG PO (08:59)
--- NOTE | 2018-06-10 09:15 | NUR ---
2L NC, NO RESP DISTRESS. RIGHT WRIST TR BAND CDI, NO BLEEDING OR HEMATOMA NOTED. NO C/O PAIN OR NAUSEA. VSS. CALL LIGHT WITHIN REACH.
--- NOTE | 2018-06-10 09:45 | NUR ---
RESTING QUIETLY WITH EYES CLOSED. RIGHT WRIST TR BAND CDI, NO BLEEDING OR HEMATOMA NOTED. NO NEEDS VOICED. VSS. WILL CONTINUE TO MONITOR.
--- NOTE | 2018-06-10 10:00 | NUR ---
CONTINUES TO REST COMFORTABLY WITH NO C/O. RIGHT WRIST TR BAND CDI, NO BLEEDING OR HEMATOMA NOTED. DENIES ANY NEEDS. VSS. CALL LIGHT WITHIN REACH.
--- NOTE | 2018-06-10 10:30 | NUR ---
DR. CHAMORRO AT BEDSIDE SPEAKING TO PT AND FAMILY. RIGHT WRIST TR BAND CDI, NO BLEEDING OR HEMATOMA NOTED. NO C/O PAIN OR NAUSEA. VSS. WILL CONTINUE TO MONITOR.
--- NOTE | 2018-06-10 11:00 | NUR ---
SIPPING ON DRINK AND EATING CRACKERS WITH NO C/O NAUSEA. RIGHT WRIST TR BAND CDI, NO BLEEDING OR HEMATOMA NOTED. NO NEEDS VOICED. VSS. WILL CONTINUE TO MONITOR.
--- NOTE | 2018-06-10 12:00 | NUR ---
3CC OF AIR REMOVED FROM TR BAND WITH NO BLEEDING NOTED. VSS. WILL CONTINUE TO MONITOR CLOSELY.
--- NOTE | 2018-06-10 12:20 | NUR ---
3CC OF AIR REMOVED FROM TR BAND WITH NO BLEEDING NOTED.
--- NOTE | 2018-06-10 12:35 | NUR ---
3CC OF AIR REMOVED FROM TR BAND WITH NO BLEEDING NOTED. LEFT PIV D/C'D WITH CATHETER INTACT, BAND AID TO SITE. UP TO BEDSIDE TO GET DRESSED. AMBULATED TO RESTROOM.
--- NOTE | 2018-06-10 12:50 | NUR ---
REMAINING AIR REMOVED FROM TR BAND, BLEEDING NOTED. 5CC AIR PLACED BACK INTO TR BAND TO STOP BLEEDING. DISCHARGE INSTRUCTIONS ALONG WITH PLAVIX PRESCRIPTION GIVEN, VERBALIZED UNDERSTANDING.
--- NOTE | 2018-06-10 13:15 | NUR ---
AIR REMOVED FROM TR BAND WITH NO BLEEDING NOTED. DRESSING PLACED TO SITE.
--- NOTE | 2018-06-10 13:20 | NUR ---
TAKEN OUT VIA WHEELCHAIR BY CATH FACILITY MAINTENANCE SUPERVISOR. LEFT FACILITY WITH FAMILY AND ALL PERSONAL BELONGINGS.
== END 2018-06-10 13:20 | disposition home or self-care (01) ==
LOC: D.CATH 05:53
PROVIDERS: ATTEND Internal Medicine Cardiovascular Disease
DX: I25.110 Atherosclerotic heart disease of native coronary artery with unstable angina pectoris (principal); Z01.812 Encounter for preprocedural laboratory examination